=== PATIENT | female | born 1990 | race Caucasian/White ===

== ENCOUNTER 2020-12-16 17:42 | Emergency (ER) | payer MEDICAID ==
[~2020-12-16] VITALS: Ht 172.7 cm; Wt 59.0 kg
[2020-12-16 18:28] VITALS: BP 114/84
--- NOTE | 2020-12-16 18:30 | NUR ---
TO ER BED 16, C/O PAIN WHEN URINATING, A&OX4, BREATHING EVEN AND UNLABORED.
[2020-12-16 18:57] LABS: BILIRUBIN,URINE Negative (NEGATIVE); COLOR,URINE YELLOW (YELLOW); LEUKOCYTE ESTERASE ,URINE Moderate (NEGATIVE); NITRITE, URINE Negative (NEGATIVE); PROTEIN,URINE Negative (NEGATIVE); UGLUCOSE Negative (NEGATIVE); UROBILINOGEN,URINE 0.2 EU/dL (0.2)
[2020-12-16 19:18] LABS: BACTERIA,URINE 2+ /HPF (None Seen); RBC,URINE 21-50 /HPF (0-2); SQUAMOUS EPITHELIAL CELL,UR Few /HPF (None Seen)
[2020-12-16] MEDS ORDERED: CEPH500T PO (19:30)
[2020-12-16] MEDS ORDERED: CEPHALEXIN MONOHYDRATE 500 MG CAPSULE PO ONE (19:31)
[2020-12-16] MEDS: CEPHALEXIN MONOHYDRATE 500 MG CAPSULE PO ONE (19:31)
[2020-12-16] MEDS ORDERED: FLUC150T PO (19:46)
== END 2020-12-16 19:52 | disposition home or self-care (01) ==
LOC: ER 17:45
DX: N39.0 Urinary tract infection, site not specified (principal); Z60.2 Problems related to living alone; Z79.899 Other long term (current) drug therapy
CPT/HCPCS: 81001; 84703-TC; 87086-TC; 87186-TC

== ENCOUNTER 2021-03-27 17:16 | Emergency (ER) | payer OTHER ==
[~2021-03-27] VITALS: Ht 172.7 cm; Wt 61.2 kg
[~2021-03-27 17:16] MED LIST: CEPH500T PO; FLUC150T PO
--- NOTE | 2021-03-27 17:16 | NUR ---
PT BIB SELF C/O VAGINAL DISCHARGE X 1 WEEK. PT IS AAOX4, NOT IN RESPIRATORY DISTRESS, V/S STABLE, KEPT RESTED AND COMFORTABLE. WILL CONTINUE TO MONITOR.
--- NOTE | 2021-03-27 18:31 | NUR ---
URINE SPECIMEN COLLECTED AND SENT TO LAB.
--- NOTE | 2021-03-27 19:00 | NUR ---
ESHA WOLFE AT BEDSIDE FOR EVLA.
[2021-03-27] MEDS ORDERED: LIDOCAINE /MPF 1% VIAL 5 ML VIAL ONE (19:09)
[2021-03-27] MEDS ORDERED: CEFTRIAXONE 1 G VIAL ONE (19:09)
[2021-03-27] MEDS ORDERED: FLUCONAZOLE (100 MG) 100 MG TABLET ONE (19:09)
[2021-03-27] MEDS: CEFTRIAXONE 500 MG VIAL IM ONE (19:26)
[2021-03-27] MEDS: FLUCONAZOLE (100 MG) 100 MG TABLET PO ONE (19:27)
[2021-03-27] MEDS ORDERED: FLUC150T PO (19:36)
[2021-03-27] MEDS ORDERED: AZITHROMYCIN 250 MG TABLET ONE (19:37)
[2021-03-27 19:39] LABS: BILIRUBIN,URINE NEGATIVE (NEGATIVE); COLOR,URINE YELLOW (YELLOW); LEUKOCYTE ESTERASE ,URINE LARGE (NEGATIVE); NITRITE, URINE NEGATIVE (NEGATIVE); PROTEIN,URINE NEGATIVE (NEGATIVE); UGLUCOSE NEGATIVE (NEGATIVE); UROBILINOGEN,URINE 0.2 EU/dL (0.2)
[2021-03-27] MEDS: AZITHROMYCIN 250 MG TABLET PO ONE (19:48)
[2021-03-27 19:50] LABS: BACTERIA,URINE 1+ /HPF (None Seen); RBC,URINE 0-2 /HPF (0-2); SQUAMOUS EPITHELIAL CELL,UR Few /HPF (None Seen); WBC,URINE 21-50 /HPF (0-3)
--- NOTE | 2021-03-27 20:20 | NUR ---
Patient discharged to home in stable condition. Rx and Written and verbal after care instructions given. Patient verbalizes understanding of instruction.
[2021-03-27 22:11] VITALS: BP 119/88
== END 2021-03-27 21:10 | disposition home or self-care (01) ==
LOC: ER 18:28
DX: N89.8 Other specified noninflammatory disorders of vagina (principal); Z20.2 Contact with and (suspected) exposure to infections with a predominantly sexual mode of transmission
CPT/HCPCS: 81001; 84703; 87086; 87491; 87591; 96372; 99283; J0696; J3490